=== PATIENT | male | born 1955 | race Hispanic/Latino ===

== ENCOUNTER 2020-10-27 07:50 | Observation (INO) | payer BC ==
[2020-10-26 12:14] VITALS: BMI 30.8
[2020-10-27] MEDS ORDERED: Chlorhexidine Gluconate 15 ML UDCUP SSP ONE (08:27)
[2020-10-27] MEDS ORDERED: Lidocaine 1% w/Epinephrine 1:100K 30 ML VIAL ONE (08:27)
[2020-10-27] MEDS ORDERED: SUGAMMADEX SODIUM 200 MG/2 ML VIAL ONE (08:34)
[2020-10-27] MEDS ORDERED: Famotidine/PF 20 mg/2ml Vial ONE (08:34)
[2020-10-27] MEDS ORDERED: Fentanyl 100 MCG/2 ML VIAL ONE ×3 (08:34→13:00)
[2020-10-27 09:11] LABS: SARS-CoV-2 NAA Rapid Test Not Detected (NotDetected)
[2020-10-27] MEDS ORDERED: Dexamethasone 20 MG/5 ML VIAL ONE (09:25)
[2020-10-27] MEDS ORDERED: PROPOFOL 200 MG/20 ML VIAL ONE (09:25)
[2020-10-27] MEDS ORDERED: ePHEDrine 50 MG/ML VIAL ONE (09:25)
[2020-10-27] MEDS ORDERED: Lidocaine 1% PF 5 ML VIAL ONE (09:25)
[2020-10-27] MEDS ORDERED: Metoclopramide HCl 10 MG/2 ML VIAL ONE (09:25)
[2020-10-27] MEDS ORDERED: PHENYLEPHRINE-NS 100 MCG/ML 10 ML SYRINGE ONE (09:25)
[2020-10-27] MEDS ORDERED: Ondansetron PF 4 MG/2 ML Vial ONE (09:25)
[2020-10-27] MEDS ORDERED: Ketorolac Tromethamine 30 MG/ML VIAL ONE (09:25)
[2020-10-27] MEDS ORDERED: Rocuronium Bromide 10 MG/ML (10ML VIAL) ONE (09:25)
[2020-10-27] MEDS ORDERED: Ondansetron HCl/PF 4 MG/2 ML Vial IVP PRN (11:47)
[2020-10-27] MEDS ORDERED: Promethazine HCl 25 MG/ML VIAL IVPB PRN (11:47)
[2020-10-27] MEDS ORDERED: Promethazine HCl 25 MG/ML VIAL IM PRN (11:47)
[2020-10-27] MEDS ORDERED: Ondansetron PF 4 MG/2 ML Vial IVP PRN (11:57)
[2020-10-27] MEDS ORDERED: Morphine 4 MG/ML VIAL SLOW IVP PRN (11:58)
[2020-10-27] MEDS ORDERED: Aluminum & Magnesium Hydroxide 60 ML, Lidocaine 2% Viscous Solution 30 ML, diphenhydrAM... SSP PRN (12:15)
[2020-10-27] MEDS: Chlorhexidine Gluconate 15 ML UDCUP SSP SCH ×3 (14:18→23:59)
[2020-10-27] MEDS: Dexamethasone 4 mg/ml Vial SLOW IVP SCH ×2 (15:10→21:37)
[2020-10-27] MEDS: Hydrocodone-Acetamin 15 ML UDCUP PO PRN (18:18)
[2020-10-27] MEDS: Amoxicillin/Potassium Clav 600 mg/5 ml Oral Suspension PO SCH (21:35)
[2020-10-27] MEDS: Famotidine/PF 20 mg/2ml Vial SLOW IVP SCH (21:35)
[2020-10-28] MEDS: Chlorhexidine Gluconate 15 ML UDCUP SSP SCH (05:48)
[2020-10-28] MEDS: Dexamethasone 4 mg/ml Vial SLOW IVP SCH (05:48)
[2020-10-28] MEDS: Hydrocodone-Acetamin 15 ML UDCUP PO PRN (07:56)
[2020-10-28] MEDS: Famotidine/PF 20 mg/2ml Vial SLOW IVP SCH (07:59)
[2020-10-28 08:21] VITALS: BP 131/75; TEMP 97.8
[2020-10-28] MEDS: Amoxicillin/Potassium Clav 600 mg/5 ml Oral Suspension PO SCH (09:21)
== END 2020-10-28 10:05 | disposition home or self-care (01) ==
LOC: SDC 07:50 → SJJU 13:43
PROVIDERS: ADMIT Student in an Organized Health Care Education/Training Program; ATTEND Student in an Organized Health Care Education/Training Program
PROC: 0CB7XZZ Excision of Tongue, External Approach (ICD-10-PCS; principal; 2020-10-27)
PROC: 0WB3XZZ Excision of Oral Cavity and Throat, External Approach (ICD-10-PCS; 2020-10-27)
DX: C02.2 Malignant neoplasm of ventral surface of tongue (principal); C04.0 Malignant neoplasm of anterior floor of mouth; F17.210 Nicotine dependence, cigarettes, uncomplicated; E78.5 Hyperlipidemia, unspecified; Z79.899 Other long term (current) drug therapy; Z20.822 Contact with and (suspected) exposure to COVID-19
CPT/HCPCS: 71045; 88304; 88305; 88309; 88331; 88332; 93005; 93010; 96374; 96375; 96376; G0378; J1100; J1885; J2405; J2704; J2765; J3010; J3490; J7620; S0028; U0002